=== PATIENT | male | born 1965 | race Hispanic/Latino ===

== ENCOUNTER 2016-07-22 09:39 | Emergency (ER) | payer OTHER ==
[~2016-07-22] VITALS: Ht 177.8 cm; Wt 95.3 kg
[2016-07-22 09:47] VITALS: BP 123/78
--- NOTE | 2016-07-22 10:44 | ED UPPER/LOWER EXTREMITY COMPL ---
History of Present Illness General Chief Complaint: Neck/Upper Back Pain/Injury Stated Complaint: NECK PAIN RADIATING DOWN RT ARM SINCE SAT Source: patient Exam Limitations: no limitations Vital Signs & Intake/Output Vital Signs & Intake/Output Vital Signs Date Time Temp Pulse Resp B/P B/P Pulse O2 O2 Flow FiO2 Mean Ox Delivery Rate 07/22 0947 98.0 77 15 123/78 97 Room Air Room Air Allergies Coded Allergies: No Known Allergies (07/22/16) Reconcile Medications No Known Home Medications Triage Note: PT TO ED FOR C/C OF R SIDED NECK, SHOULDER AND ARM PAIN THAT ALSO RADIATES TO R SIDE SINCE TUESDAY WHEN PT WOKE UP. NUMBNESS/TINGLING FROM R WRIST TO FINGERS. +CMS, STRONG PULSES. 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 Triage Nurses Notes Reviewed? yes HPI: Patient presents for evaluation of a persistent intermittent sharp right neck, right shoulder and right arm pain and paresthesias that began on Tuesday. Patient denies any known injury but states he got a brand-new memory foam pillow. Today at work he felt that his right upper extremity was painful and weak trying to use the mouse. He states that on occasion and particularly with extending the right arm he gets a sharp pain located in the right side of the neck, the right axillary region, the extensor aspect of his right arm and the extensor aspect of his right forearm. He tried Aleve without relief. Past History Travel History Traveled to [place] past 21 day No Medical History Any Pertinent Medical History? 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 No Review of Systems Review of Systems Constitutional: Reports: no symptoms. EENTM: Reports: no symptoms. Respiratory: Reports: no symptoms. Cardiovascular: Reports: no symptoms. Gastrointestinal/Abdominal: Reports: no symptoms. Genitourinary: Reports: no symptoms. Musculoskeletal: Reports: see HPI. Skin: Reports: no symptoms. Neurological/Psychological: Reports: no symptoms. Hematologic/Endocrine: Reports: no symptoms. Immunological: Reports: no symptoms. All Other Systems: Reviewed and Negative Physical Exam Physical Exam General Appearance: SEE BELOW Comments: Gen.: Well-nourished, well-developed, no acute respiratory distress. Head: Normocephalic, atraumatic. Eyes: Normal inspection bilaterally Ears: Normal inspection bilaterally Nose: Normal inspection, nasal cannula in place Throat/mouth : Moist mucosa Neck: Supple, full range of motion, no goiter, nontender, no lymphadenopathy Heart: Regular rate and rhythm Lungs: Quiet respirations Back: Normal range of motion Extremities: Right upper extremity: Normal sensation to light touch throughout the upper extremity, normal hand strength including finger spreading and opposition of first and fifth digits, normal radial and ulnar pulses, normal finger to nose testing and no pronator drift, slightly diminished right upper extremity deep tendon reflexes. With flexion and extension of the fingers of the right hand, there is a slight delay in extension of the second digit but extensor strength is otherwise normal. Evaluation of the right shoulder, right arm, right elbow, right forearm and right wrist are otherwise normal. Neurologic: Cranial nerves grossly intact, speech is clear Skin: warm and dry Psychiatric: Calm, cooperative, no apparent delusions or hallucinations Progress Differential Diagnosis: sprain, nerve impingement Plan of Care: Orders Procedure Date/time Status CT HEAD WO IV CONTRAST 07/[address] CERV SPINE WO IV CONTRAST 07/22 1042 Active Diagnostic Imaging: Discussed w/RAD: CT Scan. Radiology Impression: PATIENT: LIN PHELPS PRESENT AGE: 51 PATIENT ACCOUNT NO: [id number] : 63 LOCATION: [facility] ORDERING PHYSICIAN: TANK MONTE MD SERVICE DATE: 07/22/16 EXAM TYPE: CAT - CT CERV SPINE WO IV CONTRAST; CT HEAD WO IV CONTRAST EXAMINATION: CT HEAD W/O IV CONTRAST CT CERVICAL SPINE W/O IV CONTRAST CLINICAL INFORMATION: 51-year-old male with right upper extremity weakness and paresthesias. COMPARISON: None TECHNIQUE: Head - Contiguous axial imaging of the head was performed from the skull base to the vertex without the administration of intravenous contrast, and axial images are reconstructed at 2.5 mm and 5 mm slice thickness. Cervical spine - A volumetric, helical CT acquisition of the cervical spine was obtained without contrast; in addition to the standard set of axial images, multiplanar reformatted images were provided in the coronal and sagittal imaging planes. DLP : 966 mGy-cm (total) FINDINGS: HEAD: No evidence of acute intracranial hemorrhage, major vascular territory infarction, focal mass effect or midline shift. Echevarria to white matter differentiation is well preserved. The ventricles have normal size and configuration. The sulci and basilar cisterns are unremarkable. There are no extra-axial fluid collections. The calvarium is intact and the visualized paranasal sinuses, mastoid air cells and middle ear cavities are clear. The temporomandibular joints are unremarkable. The visualized orbits and globes are intact. CERVICAL SPINE: The occipital condyles, atlas, axis and atlantoaxial articulation are intact. The vertebral body heights and alignment are maintained. No acute fractures in the anterior or posterior elements. There is no prevertebral soft tissue swelling. At C5-C6, there is minimal degenerative disc space narrowing and osteophyte formation. At C6-C7, there is moderate degenerative disc space narrowing, traction osteophyte formation with posterior disc osteophyte complex producing mild indentation upon the ventral surface of the thecal sac and narrowing the central spinal canal to 1.1 cm AP dimension. The C6-C7 uncovertebral joint osteophytes produce mild-to- moderate bilateral foraminal stenosis at this level. The visualized lung apices are clear. Thyroid gland is unremarkable. Multiple lymph nodes are seen within the neck and the largest level 2 lymph nodes measure up to approximately 1 cm short axis dimension. The largest right submandibular lymph node is 1 cm short axis dimension. IMPRESSION: 1. No acute intracranial pathology. 2. No acute fracture or malalignment in the degenerated cervical spine. 3. C6-C7 degenerative disc space narrowing with posterior disc osteophyte complex producing mild narrowing of the central spinal canal. The uncovertebral joint osteophytes of C6-C7 produce [id number] bilateral foraminal stenosis. 4. Incidentally noted is mild prominence of lymph nodes within the neck. This is of questionable, if any, clinical significance. DICTATED BY: MELINA SOLIMAN MD DATE/TIME DICTATED:07/22/161100 EXECUTIVE SECRETARY SOCIAL WELFARE:ROSARIO DATE/TIME TRANSCRIBED:07/22/161100 CONFIDENTIAL, DO NOT COPY WITHOUT APPROPRIATE AUTHORIZATION. <Electronically signed in Other Vendor System> SIGNED BY: MELINA SOLIMAN MD 07/22/16 4501 Comments: 07/22/2016 11:47:20 AM I have updated Audra on his test results. I have discussed his case with Dr. Palmer who reviewed the CT scan and agrees the patient does have some chronic changes with osteophyte formation and some nerve root impingement. She suggests a Medrol Dosepak and office follow-up. Departure Departure Disposition: HOME OR SELF CARE Condition: Stable Clinical Impression Primary Impression: Cervical radiculopathy Referrals: SHON OLMSTEAD,BRADFORD Roper (PCP/Family) CARMEN OLMSTEAD,YONG Colunga Additional Instructions: Medrol Dosepak as prescribed. Contact Dr. Palmer's office today and arrange for follow-up appointment within the next few days for reevaluation. Notify your primary care doctor of this emergency department visit and treatment plan. Return if any concerns or sudden worsening. Please note that there might be incidental findings in your evaluation that are unrelated to the current emergency department visit. Please notify your primary care doctor about this emergency department visit in order to obtain and review all of the testing performed so that these incidental findings can be monitored as needed. If you had an x-ray performed, please understand that some fractures may not be seen on the initial set of x-rays. If your symptoms persist you might need a repeat set of x-rays to check for such a fracture. If you had a laceration evaluated, please understand that foreign bodies such as glass or wood may not be visible to the naked eye or on plain x-rays. If the wound becomes red, swollen, increasingly more painful or if there is any drainage from the wound, please have it reevaluated by a physician for the possibility of a retained foreign body. Thank you for choosing the [facility] Emergency Department for your care. It was a pleasure to serve you today. Tank Monte M.D. [facility] Departure Forms: Customer Survey General Discharge Information Prescriptions: Current Visit Scripts Tramadol HCl (Ultram) 1 TAB PO Q6P PRN PAIN #20 TAB
--- NOTE | 2016-07-22 11:15 | CT SCAN REPORT ---
EXAMINATION: CT HEAD W/O IV CONTRAST CT CERVICAL SPINE W/O IV CONTRAST CLINICAL INFORMATION: 51-year-old male with right upper extremity weakness and paresthesias. COMPARISON: None TECHNIQUE: Head - Contiguous axial imaging of the head was performed from the skull base to the vertex without the administration of intravenous contrast, and axial images are reconstructed at 2.5 mm and 5 mm slice thickness. Cervical spine - A volumetric, helical CT acquisition of the cervical spine was obtained without contrast; in addition to the standard set of axial images, multiplanar reformatted images were provided in the coronal and sagittal imaging planes. DLP: 966 mGy-cm (total) FINDINGS: HEAD: No evidence of acute intracranial hemorrhage, major vascular territory infarction, focal mass effect or midline shift. Echevarria to white matter differentiation is well preserved. The ventricles have normal size and configuration. The sulci and basilar cisterns are unremarkable. There are no extra-axial fluid collections. The calvarium is intact and the visualized paranasal sinuses, mastoid air cells and middle ear cavities are clear. The temporomandibular joints are unremarkable. The visualized orbits and globes are intact. CERVICAL SPINE: The occipital condyles, atlas, axis and atlantoaxial articulation are intact. The vertebral body heights and alignment are maintained. No acute fractures in the anterior or posterior elements. There is no prevertebral soft tissue swelling. At C5-C6, there is minimal degenerative disc space narrowing and osteophyte formation. At C6-C7, there is moderate degenerative disc space narrowing, traction osteophyte formation with posterior disc osteophyte complex producing mild indentation upon the ventral surface of the thecal sac and narrowing the central spinal canal to 1.1 cm AP dimension. The C6-C7 uncovertebral joint osteophytes produce [id number] bilateral foraminal stenosis at this level. The visualized lung apices are clear. Thyroid gland is unremarkable. Multiple lymph nodes are seen within the neck and the largest level 2 lymph nodes measure up to approximately 1 cm short axis dimension. The largest right submandibular lymph node is 1 cm short axis dimension. IMPRESSION: 1. No acute intracranial pathology. 2. No acute fracture or malalignment in the degenerated cervical spine. 3. C6-C7 degenerative disc space narrowing with posterior disc osteophyte complex producing mild narrowing of the central spinal canal. The uncovertebral joint osteophytes of C6-C7 produce [id number] bilateral foraminal stenosis. 4. Incidentally noted is mild prominence of lymph nodes within the neck. This is of questionable, if any, clinical significance.
[2016-07-22] MEDS ORDERED: ULTRAM50 M1 PO (11:51)
[2016-07-22] MEDS ORDERED: MEDROL4 M2 PO (11:58)
== END 2016-07-22 12:00 ==
LOC: ERH 09:39
DX: M54.12 Radiculopathy, cervical region (principal)